=== PATIENT | female | born 1935 | race Caucasian/White ===

== ENCOUNTER → 2016-09-20 | Outpatient (CLI) | payer MEDICARE ==
[~2016-09-20] MED LIST: ACID REFLUX PILL; ALBUTEROL17 GM INH; BENAZEPRIL-HCTZ1 T16 PO; CELEBREX PO; DIET PILL; DIOVAN HCT 160-1 TAB PO; DIOVAN320 MG PO; FLEXERIL10 MG PO; FUROSEMIDE40 MG PO; HYDROCHLOROTH12.5 MG PO; KCL PO; LASIX PO; LEXAPRO PO; LOTREL 5/20 MG1 CAP PO; MIRAPEX PO; MOBIC PO; NASONEX17 GM; NEURONTIN300 MG PO; PAROXETINE HCL20 MG PO; PHENERGAN25 M1 DOB; PRILOSEC PO; PRILOSEC20 MG PO; PROTONIX PO; REQUIP1 MG PO; SPIRONOLACTONE50 MG PO; TESSALON200 MG PO; VOLTAREN75 MG PO; ZYRTEC; [UNRECOGNIZED DRUG - REMARK]
--- NOTE | ~2016-09-20 | US98 ---
[facility]. [facility] A Service of [facility] & [facility] RADIOLOGY TEXT RESULTS PATIENT: ERNESTO WOOD LOCATION: [facility] : 39 UNIT #: [id number] AGE: [address]: Rubén Murrieta MD SEX: F ORDER DR: [id number] [address] [address] [id number] O MR#: [id number] Acc #: [id number] NAME: ERNESTO WOOD : 1935 SEX: F STUDY DATE/TIME: 09/20/2016 13:07 UNIT: [facility] ROOM: STUDY DESCRIPTION: US Pelvic Non-OB Complete Attending Physician: Rubén Murrieta M.D. Ordering Physician: Rubén Murrieta M.D. Primary Care Physician: Johnathon Hillman M.D. MEDICAL IMAGING REPORT This report is preliminary unless electronic signature is present. EXAM Transabdominal pelvic ultrasound, 09/20/2016. HISTORY Pelvic pain and bilateral lower quadrant abdominal pain with yeast infection for 1 month. Partial hysterectomy in 1974. FINDINGS Transabdominal pelvic ultrasound was performed only as per clinician request. The bladder is normal in appearance. The uterus is surgically absent as per patient history, and the vaginal cuff appears normal. The ovaries were not identified. No adnexal mass was seen and there is no free fluid in the pelvis. IMPRESSION 1. Surgical absence of the uterus. 2. The ovaries were not identified. No adnexal mass was seen and there is no free fluid in the pelvis. Dictated by... Johnathan Delong M.D. THIS IS AN ELECTRONICALLY VERIFIED REPORT Johnathan Delong M.D. at 09/21/2016 2:25 PM [place]/jennifer TD: 09/20/2016 16:05 JOB #: [id number] MEDICAL IMAGING REPORT Page 1 of 1
== END | disposition home or self-care (01) ==
LOC: SGUS 12:51
DX: R10.31 Right lower quadrant pain (principal); R10.32 Left lower quadrant pain; Z90.710 Acquired absence of both cervix and uterus
CPT/HCPCS: 76856